=== PATIENT | female | born 2000 | race African-American/Black ===

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

== ENCOUNTER 2018-04-20 10:51 | Emergency (ER) | payer SELFPAY ==
[~2018-04-20] VITALS: Ht 172.7 cm; Wt 77.1 kg
[~2018-04-20 10:51] MED LIST: OXYC1TAB15 PO
[2018-04-20 11:23] LABS: BILIRUBIN,URINE NEGATIVE (NEG); CLARITY,URINE CLEAR; COLOR,URINE YELLOW; NITRITE,URINE NEGATIVE (NEG); PH,URINE 5.5; PROTEIN,URINE NEGATIVE (NEG-TRACE); UROBILINOGEN,URINE 0.2 mg/dL (0.2 mg/dL)
[2018-04-20 11:31] LABS: SQUAMOUS EPITHELIAL CELL,UR MOD /LPF
[2018-04-20 11:32] LABS: BACTERIA,URINE MODERATE /HPF (0-FEW); RBC,URINE OCC /HPF (0-2)
[2018-04-20 11:46] LABS: BASO # 0.1 x10^3/uL (0.0-0.2); BASO % 1 % (0-3); EOS # 0.1 x10^3/uL (0.0-0.7); EOS % 0 % (0-3); HEMATOCRIT 34.4 % (36.0-47.0); HEMOGLOBIN 11.9 g/dL (12.0-15.5); LYMPH # 2.8 x10^3/uL (1.0-4.8); LYMPH % 16 % (24-48); MEAN CORPUSCULAR HEMOGLOBIN 32 pg (25-35); MEAN CORPUSCULAR HGB CONC 35 g/dL (31-37); MEAN CORPUSCULAR VOLUME 92 fL (79-100); MONO # 0.5 x10^3/uL (0.0-1.1); MONO % 3 % (0-9); NEUT # 14.1 x10^3uL (1.8-7.7); NEUT % 80 % (31-73); PLATELET COUNT 458 x10^3/uL (140-400); RED BLOOD COUNT 3.73 x10^6/uL (3.50-5.40); RED CELL DISTRIBUTION WIDTH 12.2 % (11.5-14.5); WHITE BLOOD COUNT 17.5 x10^3/uL (4.0-11.0)
[2018-04-20 11:57] LABS: CALCIUM 9.1 mg/dL (8.5-10.1); CREATININE 0.9 mg/dL (0.6-1.0); GFR 96.6; POTASSIUM 3.7 mmol/L (3.5-5.1)
[2018-04-20 12:03] LABS: ALBUMIN 2.8 g/dL (3.4-5.0); ALBUMIN/GLOBULIN RATIO 0.6 (1.0-1.7); TOTAL BILIRUBIN 0.3 mg/dL (0.2-1.0); TOTAL PROTEIN 7.8 g/dL (6.4-8.2)
[2018-04-20] MEDS ORDERED: IOHEXOL 300 MG/ML 100ML VIAL. IV ONE (12:30)
--- NOTE | 2018-04-20 12:51 | RAD ---
Examination: CT of the abdomen pelvis with IV contrast HISTORY: History of lower abdominal pain, cramping COMPARISON: None available TECHNIQUE: Axial CT images of the abdomen pelvis were performed with IV contrast. Coronal and sagittal reformats are performed Exposure: One or more of the following individualized dose reduction techniques were utilized for this examination: 1. Automated exposure control 2. Adjustment of the mA and/or kV according to patient size 3. Use of iterative reconstruction technique FINDINGS: The bibasilar lungs are clear. No evidence of free air identified in the abdomen. The visualized liver, spleen, adrenals grossly appears unremarkable. Gallbladder is mildly distended. The stomach is minimally distended. The visualized pancreas grossly appears unremarkable. Few distended small bowel loops identified in the lower abdomen. There is moderate inflammatory fat stranding identified in the pelvis particularly about in the adnexal region and about the distal small bowel region. The appendix is normal. Feces and gas noted in the colon. There is a 2.5 cm fluid density identified in the left adnexa could be a left ovarian cyst or cystic lesion or abscess. The bilateral kidneys enhance symmetrically No evidence of lytic bony destructive lesion. IMPRESSION: 1. Moderate inflammatory fat stranding identified in the pelvis particularly in the adnexal region differential includes pelvic inflammatory disease or enteritis. Clinical pelvic exam is suggested. There is a 2.5 cm cystic structure identified in the left adnexa could be a left ovarian cyst or cystic lesion or abscess. Ultrasound pelvis is recommended for further evaluation. Electronically signed by: Chaz Dukes MD (04/20/2018 12:48 PM) [id number]
--- NOTE | 2018-04-20 13:55 | PHYS DOC ---
Past Medical History Past Medical History: No Pertinent History Past Surgical History: Other Additional Past Surgical Histo: unknown abd surgery Alcohol Use: None Drug Use: None Adult General Chief Complaint Chief Complaint: ABDOMINAL PAIN HPI HPI Patient is a 18 year old female who presents with last menstrual period was April 07 and states that it was normal but usually lasts for 5 days. Patient states that slight spotting has continued with some cramping for the last 2 weeks. Patient states she's also getting headaches for the last 2 weeks. Patient states she's been taking ibuprofen and that takes her pain away. She currently has no pain. Patient states she also has nausea that comes and goes. Afebrile. Has no known drug allergies, takes no meds daily, has no past medical history. Review of Systems Review of Systems Constitutional: Denies fever or chills [] Eyes: Denies change in visual acuity, redness, or eye pain [] HENT: Denies nasal congestion or sore throat [] Respiratory: Denies cough or shortness of breath [] Cardiovascular: No additional information not addressed in HPI [] GI: low abdominal pain, nausea, denies vomiting, bloody stools or diarrhea [] : Denies dysuria or hematuria [] Musculoskeletal: Denies back pain or joint pain [] Integument: Denies rash or skin lesions [] Neurologic: Headache, focal weakness or sensory changes [] All other systems were reviewed and found to be within normal limits, except as documented in this note. Current Medications Current Medications Current Medications Medications (Trade) Dose Ordered Sig/Reynold Start Time Stop Time Status Last Admin Dose Admin Cefoxitin Sodium 2 gm/Dextrose 100 ml @ 200 mls/hr 1X ONCE 04/20/18 14:30 04/20/18 14:59 DC 04/20/18 14:30 200 MLS/HR Doxycycline Hyclate 100 mg/ Dextrose 100 ml @ 50 mls/hr 1X ONCE 04/20/18 14:30 04/20/18 16:29 Iohexol (Omnipaque 300 Mg/ml) 75 ml 1X ONCE 04/20/18 12:30 04/20/18 12:31 DC 04/20/18 12:33 75 ML Allergies Allergies Allergies Coded Allergies Type Severity Reaction Last Updated Verified No Known Drug Allergies 08/01/16 No Physical Exam Physical Exam Constitutional: Well developed, well nourished, no acute distress, non-toxic appearance. [] HENT: Normocephalic, atraumatic, bilateral external ears normal, oropharynx moist, no oral exudates, nose normal. [] Eyes: PERRLA, EOMI, conjunctiva normal, no discharge. [] Neck: Normal range of motion, no tenderness, supple, no stridor. [] Cardiovascular:Heart rate regular rhythm, no murmur [] Lungs & Thorax: Bilateral breath sounds clear to auscultation [] Abdomen: Bowel sounds normal, soft, low abdominal tenderness, no masses, no pulsatile masses. [] Skin: Warm, dry, no erythema, no rash. [] Back: No tenderness, no CVA tenderness. [] Extremities: No tenderness, no cyanosis, no clubbing, ROM intact, no edema. [] Neurologic: Alert and oriented X 3, normal motor function, normal sensory function, no focal deficits noted. [] Psychologic: Affect normal, judgement normal, mood normal. [] Current Patient Data Vital Signs Vital Signs Date Time Temp Pulse Resp B/P (MAP) Pulse Ox O2 Delivery O2 Flow Rate FiO2 04/20/18 13:55 69 20 119/74 (89) 99 Room Air 04/20/18 11:05 98.8 98.8 Lab Values Laboratory Tests Test 04/20/18 11:00 04/20/18 11:14 04/20/18 11:30 Urine Collection Type Unknown Urine Color Yellow Urine Clarity Clear Urine pH 5.5 Urine Specific [place] 1.020 Urine Protein Negative mg/dL (NEG-TRACE) Urine Glucose (UA) Negative mg/dL (NEG) Urine Ketones (Stick) Negative mg/dL (NEG) Urine Blood Negative (NEG) Urine Nitrite Negative (NEG) Urine Bilirubin Negative (NEG) Urine Urobilinogen Dipstick 0.2 mg/dL (0.2 mg/dL) Urine Leukocyte Esterase Moderate (NEG) Urine RBC Occ /HPF (0-2) Urine WBC 5-10 /HPF (0-4) Urine Squamous Epithelial Cells Mod /LPF Urine Bacteria Moderate /HPF (0-FEW) Urine Mucus Marked /LPF POC Urine HCG, Qualitative Hcg negative (Negative) White Blood Count 17.5 x10^3/uL (4.0-11.0) H Red Blood Count 3.73 x10^6/uL (3.50-5.40) Hemoglobin 11.9 g/dL (12.0-15.5) L Hematocrit 34.4 % (36.0-47.0) L Mean Corpuscular Volume 92 fL (79-100) Mean Corpuscular Hemoglobin 32 pg (25-35) Mean Corpuscular Hemoglobin Concent 35 g/dL (31-37) Red Cell Distribution Width 12.2 % (11.5-14.5) Platelet Count 458 x10^3/uL (140-400) H Neutrophils (%) (Auto) 80 % (31-73) H Lymphocytes (%) (Auto) 16 % (24-48) L Monocytes (%) (Auto) 3 % (0-9) Eosinophils (%) (Auto) 0 % (0-3) Basophils (%) (Auto) 1 % (0-3) Neutrophils # (Auto) 14.1 x10^3uL (1.8-7.7) H Lymphocytes # (Auto) 2.8 x10^3/uL (1.0-4.8) Monocytes # (Auto) 0.5 x10^3/uL (0.0-1.1) Eosinophils # (Auto) 0.1 x10^3/uL (0.0-0.7) Basophils # (Auto) 0.1 x10^3/uL (0.0-0.2) Segmented Neutrophils % 72 % (35-66) H Band Neutrophils % 6 % (0-9) Lymphocytes % 15 % (24-48) L Monocytes % 7 % (0-10) Platelet Estimate Increased (ADEQUATE) Sodium Level 140 mmol/L (136-145) Potassium Level 3.7 mmol/L (3.5-5.1) Chloride Level 104 mmol/L (98-107) Carbon Dioxide Level 27 mmol/L (21-32) Anion Gap 9 (6-14) Blood Urea Nitrogen 8 mg/dL (7-20) Creatinine 0.9 mg/dL (0.6-1.0) Estimated GFR (Cockcroft-Gault) 96.6 BUN/Creatinine Ratio 9 (6-20) Glucose Level 105 mg/dL (70-99) H Calcium Level 9.1 mg/dL (8.5-10.1) Total Bilirubin 0.3 mg/dL (0.2-1.0) Aspartate Amino Transferase (AST) 11 U/L (15-37) L Alanine Aminotransferase (ALT) 14 U/L (14-59) Alkaline Phosphatase 76 U/L (46-116) Total Protein 7.8 g/dL (6.4-8.2) Albumin 2.8 g/dL (3.4-5.0) L Albumin/Globulin Ratio 0.6 (1.0-1.7) L Lipase 103 U/L (73-393) Laboratory Tests 04/20/18 11:30 Laboratory Tests 04/20/18 11:30 Microbiology 04/20/18 Wet Prep - Final, Complete EKG EKG [] Radiology/Procedures Radiology/Procedures CT ABD PELV Impressions: [facility] [address] [place] [address] IMAGING REPORT Signed PATIENT: DAYTON GARCIA ACCOUNT: [id number] : 2000 LOCATION: ER AGE: 18 SEX: F EXAM STATUS: PRE ER ORD. PHYSICIAN: VAMSHI PAGAN APRN REASON: LOW ABDOMINAL CRAMPING PROCEDURE: CT ABD PELV W/ IV CONTRST ONLY Examination: CT of the abdomen pelvis with IV contrast HISTORY: History of lower abdominal pain, cramping COMPARISON: None available TECHNIQUE: Axial CT images of the abdomen pelvis were performed with IV contrast. Coronal and sagittal reformats are performed Exposure: One or more of the following individualized dose reduction techniques were utilized for this examination: 1. Automated exposure control 2. Adjustment of the mA and/or kV according to patient size 3. Use of iterative reconstruction technique FINDINGS: The bibasilar lungs are clear. No evidence of free air identified in the abdomen. The visualized liver, spleen, adrenals grossly appears unremarkable. Gallbladder is mildly distended. The stomach is minimally distended. The visualized pancreas grossly appears unremarkable. Few distended small bowel loops identified in the lower abdomen. There is moderate inflammatory fat stranding identified in the pelvis particularly about in the adnexal region and about the distal small bowel region. The appendix is normal. Feces and gas noted in the colon. There is a 2.5 cm fluid density identified in the left adnexa could be a left ovarian cyst or cystic lesion or abscess. The bilateral kidneys enhance symmetrically No evidence of lytic bony destructive lesion. IMPRESSION: 1. Moderate inflammatory fat stranding identified in the pelvis particularly in the adnexal region differential includes pelvic inflammatory disease or enteritis. Clinical pelvic exam is suggested. There is a 2.5 cm cystic structure identified in the left adnexa could be a left ovarian cyst or cystic lesion or abscess. Ultrasound pelvis is recommended for further evaluation. Electronically signed by: Chaz You MD (04/20/2018 12:48 PM) [id number] DICTATED and SIGNED BY: CHAZ YOU MD DATE: 04/20/18 1241 [facility] [address] [place], [place] [id number] IMAGING REPORT Signed PATIENT: DAYTON GARCIA ACCOUNT: [id number] : 2000 LOCATION: ER AGE: 18 SEX: F EXAM STATUS: REG ER ORD. PHYSICIAN: VAMSHI PAGAN APRN REASON: LOW ABDOMINAL CRAMPING/ CONTINOUS VAGINAL SPOTTING PROCEDURE: PELVIS W/TV Pelvic ultrasound, 04/20/2018: HISTORY: Pelvic pain Transabdominal and transvaginal scans were obtained. The uterus is retroverted. It measures 8.0 x 5.2 x 6.1 cm. The central uterine echo complex measures 6 to 7 mm. No uterine abnormality is detected. The right ovary measures 4.2 x 3.1 x 3.7 cm. It contains small cysts. Blood flow is present in the right ovary. The left ovary measures 5.4 x 4.2 x 2.6 cm. There is an elongated cystic structure related to the left ovary measuring just over 2 cm. Blood flow is present in the left ovary. There is a tiny amount of fluid along the posterior margin of the uterus. No large pelvic fluid collection is seen. IMPRESSION: 1. The ovaries are mildly enlarged and contain several cysts. 2. Trace amount of free fluid in the pelvis. Electronically signed by: Raji Joyner MD (04/20/2018 2:20 PM) [facility] DICTATED and SIGNED BY: RAJI JOYNER MD DATE: 04/20/18 0005 Course & Med Decision Making Course & Med Decision Making Patient is a 18 year old female who presents with last menstrual period was April 07 and states that it was normal but usually lasts for 5 days. Patient states that slight spotting has continued with some cramping for the last 2 weeks. Patient states she's also getting headaches for the last 2 weeks. Patient states she's been taking ibuprofen and that takes her pain away. She currently has no pain. Patient states she also has nausea that comes and goes. Afebrile. Has no known drug allergies, takes no meds daily, has no past medical history. Abdomen soft patient states that with palpation to her right, left and mid lower abdomen and slightly uncomfortable but does not cause her pain. Patient denies any dysuria. Mucous membranes are moist. Skin is pink warm and dry. alert and oriented. Denies abnormal vaginal discharge. Lungs are clear to auscultation. Heart rate regular and without murmur. Vital signs are within normal limits. Urine shows no signs of infection. Patient states that she is not concerned about STDs and has not had intercourse for quite some time. Patient's white blood cell count of 17.5. Her CT abdomen pelvis shows Moderate inflammatory fat stranding identified in the pelvis particularly in the adnexal region differential includes pelvic inflammatory disease or enteritis. Clinical pelvic exam is suggested. There is a 2.5 cm cystic structure identified in the left adnexa could be a left ovarian cyst or cystic lesion or abscess. Ultrasound pelvis is recommended for further evaluation. Patients US pelvis shows 1. The ovaries are mildly enlarged and contain several cysts. 2. Trace amount of free fluid in the pelvis. Patient is treated with IV Cefoxin and Doxycycline in the ED for likely PID. Patient will be sent home with a prescription for 14 days of doxycycline. I have spoken to Dr. Forrest that he is agreeable to this discharge plan. She'll follow-up with him this week. 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 Departure Departure Impression: Primary Impression: Pelvic inflammatory disease Disposition: HOME, SELF-CARE Condition: STABLE Referrals: NO PCP (PCP) Patient Instructions: Pelvic Inflammatory Disease Additional Instructions: Follow-up with Dr. Forrest by calling his office on Monday. Take medications as prescribed. Scripts Doxycycline Hyclate (DOXYCYCLINE HYCLATE) 100 Mg Tablet. 100 MG PO DAILY, #14 TAB Prov: VAMSHI PAGAN APRN 04/20/18 VAMSHI PAGAN APRN Apr 20, 2018 13:54
[2018-04-20 14:03] LABS: % BANDS 6 % (0-9); % LYMPHS 15 % (24-48); % MONOS 7 % (0-10); % SEGS 72 % (35-66); PLT ESTIMATE INCREASED (ADEQUATE)
--- NOTE | 2018-04-20 14:24 | RAD ---
Pelvic ultrasound, 04/20/2018: HISTORY: Pelvic pain Transabdominal and transvaginal scans were obtained. The uterus is retroverted. It measures 8.0 x 5.2 x 6.1 cm. The central uterine echo complex measures 6 to 7 mm. No uterine abnormality is detected. The right ovary measures 4.2 x 3.1 x 3.7 cm. It contains small cysts. Blood flow is present in the right ovary. The left ovary measures 5.4 x 4.2 x 2.6 cm. There is an elongated cystic structure related to the left ovary measuring just over 2 cm. Blood flow is present in the left ovary. There is a tiny amount of fluid along the posterior margin of the uterus. No large pelvic fluid collection is seen. IMPRESSION: 1. The ovaries are mildly enlarged and contain several cysts. 2. Trace amount of free fluid in the pelvis. Electronically signed by: Raji Joyner MD (04/20/2018 2:20 PM) [facility]
[2018-04-20] MEDS ORDERED: DOXYCYCLINE HYCLATE 100 MG in IV DEXTROSE 5% 100ML 100 ML IV ONE (14:30)
[2018-04-20] MEDS ORDERED: cefOXitin SODIUM 2 GM in IV DEXTROSE 5% 100ML 100 ML IV ONE (14:30)
[2018-04-20] MEDS ORDERED: DOXY100T9 PO (15:18)
[2018-04-20] MEDS ORDERED: ACETAMINOPHEN 500 MG TABLET PO ONE (17:15)
[2018-04-20 17:24] VITALS: BP 96/55
[2018-04-23 13:17] LABS: GC PROBE Positive (Negative)
== END 2018-04-20 18:00 | disposition home or self-care (01) ==
LOC: ER 10:51
DX: N73.8 Other specified female pelvic inflammatory diseases (principal); R51 Headache; R11.0 Nausea; R53.1 Weakness; N83.201 Unspecified ovarian cyst, right side; N83.202 Unspecified ovarian cyst, left side
CPT/HCPCS: 36415; 74177; 76830; 76856; 80053; 81001; 81025; 83690; 85007; 85025; 87086; 87491; 87591; 96365; 96366; 96367; 99284; J0694; J3490; Q0111; Q9967